=== PATIENT | female | born 1960 | race Caucasian/White ===

== ENCOUNTER 2017-05-06 09:00 | Outpatient (CLI) | payer OTHER ==
[~2017-05-06] VITALS: Ht 165.1 cm; Wt 89.8 kg
[2017-05-06] MEDS ORDERED: OMEP10CA4 PO (09:08)
[2017-05-06] MEDS ORDERED: bcp PO (09:08)
== END 2017-05-06 09:06 ==
LOC: PREOP 09:00
PROVIDERS: ATTEND Surgery
DX: Z01.818 Encounter for other preprocedural examination (principal); Z12.11 Encounter for screening for malignant neoplasm of colon; Z86.010 Personal history of colon polyps